=== PATIENT | female | born 1960 | race Hispanic/Latino ===

== ENCOUNTER 2018-02-25 08:52 | Emergency (ER) | payer SELFPAY ==
[~2018-02-25] VITALS: Ht 154.9 cm; Wt 64.3 kg
[2018-02-25 09:59] LABS: URINE BILIRUBIN - DIPSTICK NEGATIVE (NEGATIVE); URINE BLOOD DIPSTICK SMALL (NEGATIVE); URINE COLOR YELLOW; URINE GLUCOSE - DIPSTICK NEGATIVE (NEGATIVE); URINE KETONE NEGATIVE (NEGATIVE); URINE NITRITE - DIPSTICK NEGATIVE (Negative); URINE PROTEIN - DIPSTICK NEGATIVE (NEG-TRACE); URINE SPECIFIC GRAVITY 1.015; URINE UROBILINOGEN - DIPSTICK 0.2 E.U./dL (0.2)
[2018-02-25 10:00] LABS: HEMATOCRIT 40.5 % (37.0-47.0); HEMOGLOBIN 13.2 g/dl (12.0-16.0); IMMATURE GRANULOCYTES 0.4 % (0.0-5.0); MEAN CELL VOLUME 85.4 fL CALC (80.0-100.0); MEAN CORPUSCULAR HGB 27.8 pG CALC (26.0-32.0); MEAN CORPUSCULAR HGB CONC 32.6 g/L CALC (32.0-36.0); NEUT# 4.89 thou/uL (2.00-7.15); RED BLOOD COUNT 4.74 mill/uL (4.20-5.60); RED CELL DISTRI WIDTH 13.1 % (11.5-15.5)
[2018-02-25 10:06] LABS: URINE CLARITY HAZY; URINE LEUK ESTERASE MODERATE (NEGATIVE)
[2018-02-25 10:08] LABS: URINE BACTERIA FEW hpf; URINE EPITHELIAL CELLS FEW EPI/hpf (0-FEW)
[2018-02-25 10:23] LABS: ALBUMIN 4.4 g/dL (3.2-5.0); ALKALINE PHOSPHATASE 149 u/l (38-126); ANION GAP 13 (6-22 (CALC)); BILIRUBIN, TOTAL 0.4 mg/dL (0.0-1.4); BUN 10 mg/dL (7-17); BUN/CREATININE RATIO 22 (12-20 (CALC)); CARBON DIOXIDE 24 mmol/l (22-30); CHLORIDE 110 mmol/l (95-108); CREATININE 0.5 mg/dL (0.5-1.0); GFR > 60 ML/MIN (>=60 (CALC)); GFR FOR AFR.AMER. > 60 ML/MIN (>=60 (CALC)); LIPASE 42 u/l (23-300); SGOT/AST 29 u/l (14-36); SODIUM 144 mmol/l (137-146); TOTAL PROTEIN 8.9 g/dL (6.3-8.2)
[2018-02-25] MEDS ORDERED: CIPROFLOXACN500 MG PO (12:22)
[2018-02-25] MEDS ORDERED: ANUCORT-HC25 MG RE (12:22)
[2018-02-25 12:53] VITALS: BP 148/79
== END 2018-02-25 12:53 | disposition home or self-care (01) | DRG 690 ==
LOC: ED 08:52
PROVIDERS: Emergency Medicine
DX: N39.0 Urinary tract infection, site not specified (principal); K62.89 Other specified diseases of anus and rectum; R19.7 Diarrhea, unspecified; I10 Essential (primary) hypertension
CPT/HCPCS: Q9967